=== PATIENT | female | born 1935 | race African-American/Black ===

== ENCOUNTER 2018-02-27 18:33 | Inpatient (IN) | payer MEDICARE, OTHER ==
[~2018-02-27] VITALS: Ht 162.6 cm; Wt 65.8 kg
[2018-02-27 20:58] LABS: BASOPHILS % 0.3 % (0.0-2.0); HEMATOCRIT. 30.6 % (36.0-48.0); HEMOGLOBIN. 9.4 g/dL (12.0-16.0); LYMPHOCYTES % 11.2 % (20.0-50.0); MEAN CORPUSCULAR HEMOGLOBIN 20.5 pg (28.0-32.0); MEAN CORPUSCULAR VOLUME 66.3 fL (81.0-99.0); MEAN PLATELET VOLUME 7.2 fl (7.4-10.4); MONOCYTES % 4.2 % (2.0-8.0); NEUTROPHILS % 84.3 % (40.0-76.0); PLATELET 365 x1000/uL (130-400); RED BLOOD CELL COUNT 4.61 mill/uL (4.2-5.4); RED CELL DISTRIBUTION WIDTH 19.2 % (11.6-14.6)
[2018-02-27 21:03] LABS: CHLORIDE 105 mEq/L (98-107)
[2018-02-27 21:05] LABS: INR 1.1; PARTIAL THROMBOPLASTIN TIME 26.7 sec (23.4-31.0); PROTHROMBIN TIME 11.4 sec (9.4-11.6)
[2018-02-27 21:07] LABS: ETHANOL BLOOD < 10 mg/dL
[2018-02-27 21:38] LABS: PLATELET ESTIMATE NORMAL
[2018-02-27] MEDS ORDERED: ASPIRIN 81MG TABLET PO ONE (23:15)
[2018-02-28] MEDS: KCL 20MEQ/100ML PREMIX 100 ML IV SCH ×2 (00:12→03:04)
[2018-02-28 02:57] VITALS: BP 119/74
[2018-02-28] MEDS ORDERED: MORPHINE SULFATE 4 MG/ML CPJ (NOT FOR IM USE) IV PRN (04:45)
[2018-02-28] MEDS: SODIUM CHLORIDE 0.9% 1,000 ML IV SCH ×2 (04:45→05:17)
[2018-02-28 08:00] VITALS: BP 140/79
[2018-02-28] MEDS ORDERED: ACETAMINOPHEN 325MG TABLET PO PRN (09:00)
[2018-02-28] MEDS ORDERED: DEXTROSE 50% WATER 50ML SYRINGE IV PRN (09:00)
[2018-02-28] MEDS ORDERED: ENOXAPARIN 40MG/0.4ML SYR SUBCUT SCH (09:00)
[2018-02-28] MEDS ORDERED: CEFTRIAXONE 1 G PREMIX 50 ML IV SCH (10:00)
[2018-02-28 10:31] LABS: HEMATOCRIT 27.6 % (36.0-48.0); HEMOGLOBIN 8.5 g/dL (12.0-16.0); MEAN CORPUSCULAR HEMOGLOBIN 20.3 pg (28.0-32.0); MEAN CORPUSCULAR VOLUME 65.9 fL (81.0-99.0); PLATELET 312 x1000/uL (130-400); RED BLOOD CELL COUNT 4.19 mill/uL (4.2-5.4); RED CELL DISTRIBUTION WIDTH 18.9 % (11.6-14.6)
[2018-02-28] MEDS ORDERED: CLONIDINE 0.1MG TABLET PO PRN (11:30)
[2018-02-28] MEDS: BLOOD SUGAR DIAGNOSTIC STRIP TEST SCH ×3 (12:37→21:48)
[2018-02-28 12:39] LABS: TOTAL IRON BINDING CAPACITY 320 ug/dL (250-450)
[2018-02-28 12:41] LABS: CHLORIDE 108 mEq/L (98-107)
[2018-02-28] MEDS: INSULIN LISPRO 100 UNITS/ML SUBCUT SCH ×3 (12:50→21:00)
[2018-02-28] MEDS: DILTIAZEM HCL 60MG TABLET PO SCH ×2 (14:34→21:48)
[2018-02-28] MEDS: POTASSIUM CHLORIDE 10MEQ TABLET SR PO SCH (14:34)
[2018-02-28 17:20] LABS: HEMATOCRIT 29.6 % (36.0-48.0); MEAN CORPUSCULAR HEMOGLOBIN 20.2 pg (28.0-32.0); MEAN CORPUSCULAR VOLUME 66.2 fL (81.0-99.0); PLATELET 318 x1000/uL (130-400); RED BLOOD CELL COUNT 4.47 mill/uL (4.2-5.4); RED CELL DISTRIBUTION WIDTH 19.1 % (11.6-14.6)
[2018-02-28] MEDS: CEFTRIAXONE 1 G PREMIX 50 ML IV SCH (17:53)
[2018-02-28] MEDS: FERROUS SULFATE 325MG TABLET PO SCH (17:56)
[2018-02-28 20:00] VITALS: BP 103/76
[2018-02-28 23:29] LABS: HEMATOCRIT 27.1 % (36.0-48.0); HEMOGLOBIN 8.5 g/dL (12.0-16.0); MEAN CORPUSCULAR HEMOGLOBIN 20.6 pg (28.0-32.0); MEAN CORPUSCULAR VOLUME 65.7 fL (81.0-99.0); PLATELET 303 x1000/uL (130-400); RED BLOOD CELL COUNT 4.12 mill/uL (4.2-5.4)
[2018-03-01] VITALS: BP 142/87
[2018-03-01] MEDS: HYDROCODONE/ACETAMINOPHEN 5/325MG TABLET PO PRN ×2 (01:28→05:55)
[2018-03-01 04:00] VITALS: BP 151/78
[2018-03-01] MEDS: DILTIAZEM HCL 60MG TABLET PO SCH (05:22)
[2018-03-01] MEDS: BLOOD SUGAR DIAGNOSTIC STRIP TEST SCH ×4 (06:39→21:17)
[2018-03-01] MEDS: INSULIN LISPRO 100 UNITS/ML SUBCUT SCH ×4 (06:39→21:29)
[2018-03-01 06:42] LABS: BASOPHILS % 0.8 % (0.0-2.0); MEAN CORPUSCULAR HEMOGLOBIN 20.5 pg (28.0-32.0); MEAN CORPUSCULAR VOLUME 66.2 fL (81.0-99.0); MEAN PLATELET VOLUME 7.9 fl (7.4-10.4); MONOCYTES % 6.1 % (2.0-8.0); NEUTROPHILS % 72.1 % (40.0-76.0); PLATELET 307 x1000/uL (130-400); RED BLOOD CELL COUNT 4.38 mill/uL (4.2-5.4); RED CELL DISTRIBUTION WIDTH 18.9 % (11.6-14.6)
[2018-03-01 07:09] LABS: CHLORIDE 107 mEq/L (98-107)
[2018-03-01 08:00] VITALS: BP 134/71
[2018-03-01] MEDS: POTASSIUM CHLORIDE 10MEQ TABLET SR PO SCH (08:55)
[2018-03-01] MEDS: FERROUS SULFATE 325MG TABLET PO SCH ×3 (08:55→17:05)
[2018-03-01 12:00] VITALS: BP 134/71
[2018-03-01] MEDS: DILTIAZEM HCL 90MG TABLET PO SCH ×2 (13:46→21:17)
[2018-03-01 16:00] VITALS: BP 159/79
[2018-03-01 16:20] LABS: AMMONIA 11 uMol/L (<32)
[2018-03-01 16:26] LABS: T4 FREE 1.39 ng/dL (0.76-1.46)
[2018-03-01] MEDS: CEFTRIAXONE 1 G PREMIX 50 ML IV SCH (16:33)
[2018-03-01 16:36] LABS: FOLIC ACID (FOLATE) SERUM 8.9 ng/mL (>5.38)
[2018-03-01 20:00] VITALS: BP 124/69
[2018-03-02] VITALS: BP 122/69
[2018-03-02 04:00] VITALS: BP 155/72
[2018-03-02 06:30] LABS: BASOPHILS % 0.5 % (0.0-2.0); EOSINOPHILS % 1.7 % (0.0-5.0); HEMATOCRIT. 28.4 % (36.0-48.0); HEMOGLOBIN. 8.7 g/dL (12.0-16.0); LYMPHOCYTES % 19.2 % (20.0-50.0); MEAN CORPUSCULAR HEMOGLOBIN 20.2 pg (28.0-32.0); MEAN CORPUSCULAR VOLUME 65.9 fL (81.0-99.0); MEAN PLATELET VOLUME 8.5 fl (7.4-10.4); MONOCYTES % 6.4 % (2.0-8.0); NEUTROPHILS % 72.2 % (40.0-76.0); PLATELET 313 x1000/uL (130-400); RED BLOOD CELL COUNT 4.31 mill/uL (4.2-5.4); RED CELL DISTRIBUTION WIDTH 18.6 % (11.6-14.6)
[2018-03-02] MEDS: BLOOD SUGAR DIAGNOSTIC STRIP TEST SCH ×4 (06:40→21:00)
[2018-03-02] MEDS: DILTIAZEM HCL 90MG TABLET PO SCH ×3 (06:41→22:10)
[2018-03-02 06:44] LABS: CHLORIDE 107 mEq/L (98-107)
[2018-03-02] MEDS: INSULIN LISPRO 100 UNITS/ML SUBCUT SCH ×4 (06:45→22:16)
[2018-03-02 08:00] VITALS: BP 133/76
[2018-03-02] MEDS: POTASSIUM CHLORIDE 10MEQ TABLET SR PO SCH (08:19)
[2018-03-02] MEDS: FERROUS SULFATE 325MG TABLET PO SCH ×3 (08:19→17:20)
[2018-03-02] MEDS ORDERED: HYDROCODONE/ACETAMINOPHEN 5/325MG TABLET PO NR (08:45)
[2018-03-02 12:00] VITALS: BP 138/84
[2018-03-02 16:00] VITALS: BP 129/72
[2018-03-02] MEDS: CEFTRIAXONE 1 G PREMIX 50 ML IV SCH (16:24)
[2018-03-02 20:00] VITALS: BP 139/73
[2018-03-03 04:00] VITALS: BP 151/82
[2018-03-03 06:19] LABS: BASOPHILS % 0.6 % (0.0-2.0); EOSINOPHILS % 2.6 % (0.0-5.0); HEMATOCRIT. 26.6 % (36.0-48.0); HEMOGLOBIN. 8.3 g/dL (12.0-16.0); LYMPHOCYTES % 19.7 % (20.0-50.0); MEAN CORPUSCULAR HEMOGLOBIN 20.8 pg (28.0-32.0); MEAN CORPUSCULAR VOLUME 66.7 fL (81.0-99.0); MEAN PLATELET VOLUME 8.6 fl (7.4-10.4); MONOCYTES % 7.2 % (2.0-8.0); NEUTROPHILS % 69.9 % (40.0-76.0); PLATELET 265 x1000/uL (130-400); RED BLOOD CELL COUNT 3.98 mill/uL (4.2-5.4); RED CELL DISTRIBUTION WIDTH 18.9 % (11.6-14.6)
[2018-03-03] MEDS: DILTIAZEM HCL 90MG TABLET PO SCH ×3 (06:32→21:32)
[2018-03-03] MEDS: INSULIN LISPRO 100 UNITS/ML SUBCUT SCH ×4 (06:32→21:40)
[2018-03-03] MEDS: BLOOD SUGAR DIAGNOSTIC STRIP TEST SCH ×4 (06:32→21:00)
[2018-03-03 07:09] LABS: CHLORIDE 107 mEq/L (98-107)
[2018-03-03 08:00] VITALS: BP 141/87
[2018-03-03] MEDS: POTASSIUM CHLORIDE 10MEQ TABLET SR PO SCH (08:53)
[2018-03-03] MEDS: FERROUS SULFATE 325MG TABLET PO SCH (08:53)
[2018-03-03] MEDS: IRON SUCROSE COMPLEX 100 MG/5 ML ML IV SCH (10:12)
[2018-03-03 12:00] VITALS: BP 178/82
[2018-03-03 16:30] VITALS: BP 150/65
[2018-03-03] MEDS: CEFTRIAXONE 1 G PREMIX 50 ML IV SCH (17:19)
[2018-03-03 20:00] VITALS: BP 137/86
[2018-03-04] VITALS: BP 133/66
[2018-03-04 04:00] VITALS: BP 128/62
[2018-03-04] MEDS: BLOOD SUGAR DIAGNOSTIC STRIP TEST SCH ×2 (05:01→12:10)
[2018-03-04] MEDS: DILTIAZEM HCL 90MG TABLET PO SCH ×2 (05:41→14:06)
[2018-03-04] MEDS: INSULIN LISPRO 100 UNITS/ML SUBCUT SCH ×2 (05:45→14:03)
[2018-03-04 07:03] LABS: EOSINOPHILS % 2.3 % (0.0-5.0); HEMATOCRIT. 27.1 % (36.0-48.0); HEMOGLOBIN. 8.5 g/dL (12.0-16.0); LYMPHOCYTES % 20.9 % (20.0-50.0); MEAN CORPUSCULAR HEMOGLOBIN 21.1 pg (28.0-32.0); MEAN CORPUSCULAR VOLUME 67.7 fL (81.0-99.0); MEAN PLATELET VOLUME 7.3 fl (7.4-10.4); NEUTROPHILS % 66.8 % (40.0-76.0); PLATELET 265 x1000/uL (130-400); RED CELL DISTRIBUTION WIDTH 19.1 % (11.6-14.6)
[2018-03-04] MEDS ORDERED: DONEPEZIL HCL 5MG TABLET PO SCH (09:00)
[2018-03-04] MEDS: IRON SUCROSE COMPLEX 100 MG/5 ML ML IV SCH (09:11)
[2018-03-04 09:53] LABS: CHLORIDE 108 mEq/L (98-107)
[2018-03-04 10:05] LABS: PHOSPHORUS 2.5 mg/dL (2.5-4.9)
[2018-03-04 11:55] VITALS: BP 142/79
[2018-03-04 13:40] VITALS: BP 153/70
== END 2018-03-04 16:00 | DRG 871 ==
LOC: ER 19:04 → 8WST 23:19 → EDBEDREQ 23:40 → ENRESERV 02-28 00:10
PROVIDERS: ADMIT Internal Medicine Nephrology; ATTEND Internal Medicine Nephrology
PROC: 4A10X4Z Monitoring of Central Nervous Electrical Activity, External Approach (ICD-10-PCS; principal; 2018-03-03)
DX: A41.9 Sepsis, unspecified organism (principal); G92 Toxic encephalopathy; N39.0 Urinary tract infection, site not specified; I47.1 Supraventricular tachycardia; I48.92 Unspecified atrial flutter; M84.361A Stress fracture, right tibia, initial encounter for fracture; E87.6 Hypokalemia; F03.90 Unspecified dementia, unspecified severity, without behavioral disturbance, psychotic disturbance, mood disturbance, and anxiety; D50.9 Iron deficiency anemia, unspecified; G31.9 Degenerative disease of nervous system, unspecified; E11.9 Type 2 diabetes mellitus without complications; I11.9 Hypertensive heart disease without heart failure; I48.91 Unspecified atrial fibrillation; M17.11 Unilateral primary osteoarthritis, right knee; R74.8 Abnormal levels of other serum enzymes; I49.9 Cardiac arrhythmia, unspecified; I49.3 Ventricular premature depolarization; R29.6 Repeated falls; M81.0 Age-related osteoporosis without current pathological fracture; W18.39XA Other fall on same level, initial encounter; Y93.89 Activity, other specified; Y92.091 Bathroom in other non-institutional residence as the place of occurrence of the external cause; Y99.8 Other external cause status; Z86.73 Personal history of transient ischemic attack (TIA), and cerebral infarction without residual deficits; Z91.81 History of falling; Z88.8 Allergy status to other drugs, medicaments and biological substances; Z82.49 Family history of ischemic heart disease and other diseases of the circulatory system
CPT/HCPCS: 36415; 70450; 70551; 71045; 73562; 73721; 80048; 80053; 80307; 80329; 82140; 82270; 82607; 82728; 82746; 82950; 82962; 83036; 83540; 83550; 83735; 83880; 84100; 84439; 84443; 84481; 84484; 84550; 85025; 85027; 85610; 85730; 86850; 86900; 87040; 92610; 93005; 93306; 93970; 97162; 97166; 97530; 99285; G0482; J0696; J1650; J1815; J3480; J7030

== ENCOUNTER 2018-03-04 16:08 | Inpatient (IN) | payer MEDICARE ==
[~2018-03-04] VITALS: Ht 162.6 cm; Wt 66.7 kg
[2018-03-04 16:40] VITALS: BP 135/60
[2018-03-04 17:12] VITALS: BP 135/60
[2018-03-04] MEDS ORDERED: ACETAMINOPHEN 325MG TABLET PO PRN (18:15)
[2018-03-04] MEDS ORDERED: CLONIDINE 0.1MG TABLET PO PRN (18:15)
[2018-03-04] MEDS ORDERED: DEXTROSE 50% WATER 50ML SYRINGE IV PRN (18:15)
[2018-03-04] MEDS ORDERED: MORPHINE SULFATE 4 MG/ML CPJ (NOT FOR IM USE) IV PRN (18:15)
[2018-03-04 20:00] VITALS: BP 137/69
[2018-03-04] MEDS: BLOOD SUGAR DIAGNOSTIC STRIP TEST SCH (21:00)
[2018-03-04] MEDS: DILTIAZEM HCL 90MG TABLET PO SCH (22:33)
[2018-03-04] MEDS: INSULIN LISPRO 100 UNITS/ML SUBCUT SCH (22:36)
[2018-03-05] MEDS: DILTIAZEM HCL 90MG TABLET PO SCH ×3 (06:00→21:53)
[2018-03-05] MEDS: BLOOD SUGAR DIAGNOSTIC STRIP TEST SCH ×4 (06:07→21:00)
[2018-03-05] MEDS: INSULIN LISPRO 100 UNITS/ML SUBCUT SCH ×4 (06:07→22:01)
[2018-03-05 07:43] LABS: BASOPHILS % 0.5 % (0.0-2.0); EOSINOPHILS % 2.2 % (0.0-5.0); HEMATOCRIT. 29.4 % (36.0-48.0); LYMPHOCYTES % 20.9 % (20.0-50.0); MEAN CORPUSCULAR HEMOGLOBIN 20.6 pg (28.0-32.0); MEAN CORPUSCULAR VOLUME 67.4 fL (81.0-99.0); NEUTROPHILS % 67.4 % (40.0-76.0); PLATELET 325 x1000/uL (130-400); RED BLOOD CELL COUNT 4.35 mill/uL (4.2-5.4); RED CELL DISTRIBUTION WIDTH 19.1 % (11.6-14.6)
[2018-03-05 08:00] VITALS: BP 154/94
[2018-03-05 08:00] LABS: CHLORIDE 106 mEq/L (98-107)
[2018-03-05] MEDS: DONEPEZIL HCL 5MG TABLET PO SCH (08:16)
[2018-03-05] MEDS: IRON SUCROSE COMPLEX 100 MG in SODIUM CHLORIDE 0.9% 100 ML IV SCH (08:16)
[2018-03-05 10:43] VITALS: BP 154/94
[2018-03-05 12:00] VITALS: BP 139/88
[2018-03-05 16:49] LABS: PLATELET ESTIMATE NORMAL
[2018-03-05 20:00] VITALS: BP 150/84
[2018-03-05] MEDS: CEFTRIAXONE 1 G PREMIX 50 ML IV SCH ×2 (21:53)
[2018-03-06] MEDS: DILTIAZEM HCL 90MG TABLET PO SCH ×3 (05:48→21:42)
[2018-03-06] MEDS: BLOOD SUGAR DIAGNOSTIC STRIP TEST SCH ×4 (05:50→21:40)
[2018-03-06 08:00] VITALS: BP 141/78
[2018-03-06 08:13] LABS: CHLORIDE 104 mEq/L (98-107)
[2018-03-06 08:17] LABS: BASOPHILS % 0.9 % (0.0-2.0); EOSINOPHILS % 1.8 % (0.0-5.0); HEMATOCRIT. 31.5 % (36.0-48.0); HEMOGLOBIN. 9.7 g/dL (12.0-16.0); LYMPHOCYTES % 21.2 % (20.0-50.0); MEAN CORPUSCULAR HEMOGLOBIN 20.9 pg (28.0-32.0); MEAN CORPUSCULAR VOLUME 67.8 fL (81.0-99.0); MEAN PLATELET VOLUME 7.5 fl (7.4-10.4); MONOCYTES % 6.4 % (2.0-8.0); NEUTROPHILS % 69.7 % (40.0-76.0); PLATELET 394 x1000/uL (130-400); RED BLOOD CELL COUNT 4.65 mill/uL (4.2-5.4)
[2018-03-06 08:23] LABS: LDL CHOLESTEROL 137 mg/dL (5-100)
[2018-03-06 08:24] LABS: HDL CHOLESTEROL 62 mg/dL (40-59)
[2018-03-06 08:25] LABS: PHOSPHORUS 2.4 mg/dL (2.5-4.9)
[2018-03-06 08:27] LABS: TOTAL IRON BINDING CAPACITY 294 ug/dL (250-450)
[2018-03-06 08:31] LABS: FOLIC ACID (FOLATE) SERUM 8.1 ng/mL (>5.38)
[2018-03-06] MEDS: INSULIN LISPRO 100 UNITS/ML SUBCUT SCH ×4 (09:00→21:39)
[2018-03-06 09:03] LABS: CLARITY URINE CLEAR (CLEAR); COLOR URINE YELLOW (YELLOW); KETONES URINE NEGATIVE (NEGATIVE); LEUKOCYTE ESTERASE URINE NEGATIVE (NEGATIVE); NITRITE URINE NEGATIVE (NEGATIVE); OCCULT BLOOD URINE NEGATIVE (NEGATIVE); PH URINE 8.5 (4.5-8.0); PROTEIN URINE NEGATIVE (NEGATIVE); SPECIFIC GRAVITY URINE 1.008 (1.005-1.030); UROBILINOGEN URINE 0.2 E.U./dL (0.2-1.0)
[2018-03-06] MEDS: DONEPEZIL HCL 5MG TABLET PO SCH (09:23)
[2018-03-06] MEDS: IRON SUCROSE COMPLEX 100 MG in SODIUM CHLORIDE 0.9% 100 ML IV SCH (09:25)
[2018-03-06] MEDS: HYDROCODONE/ACETAMINOPHEN 10/325MG TABLET PO PRN (13:52)
[2018-03-06] MEDS: CYANOCOBALAMIN 1000MCG/ML VIAL IM SCH (16:37)
[2018-03-06 20:00] VITALS: BP 159/80
[2018-03-06] MEDS ORDERED: ATORVASTATIN CALCIUM 40MG TABLET PO SCH (21:00)
[2018-03-06] MEDS: MUPIROCIN 2% OINT 22GM NS SCH (21:40)
[2018-03-06] MEDS: CEFTRIAXONE 1 G PREMIX 50 ML IV SCH (21:41)
[2018-03-07] MEDS: BLOOD SUGAR DIAGNOSTIC STRIP TEST SCH ×4 (06:55→21:04)
[2018-03-07] MEDS: DILTIAZEM HCL 90MG TABLET PO SCH ×3 (06:57→21:04)
[2018-03-07 07:50] VITALS: BP 142/65
[2018-03-07 08:00] VITALS: BP 142/65
[2018-03-07] MEDS: IRON SUCROSE COMPLEX 100 MG in SODIUM CHLORIDE 0.9% 100 ML IV SCH (08:33)
[2018-03-07] MEDS: DONEPEZIL HCL 5MG TABLET PO SCH (08:33)
[2018-03-07] MEDS: CYANOCOBALAMIN 1000MCG/ML VIAL IM SCH (08:33)
[2018-03-07] MEDS: MUPIROCIN 2% OINT 22GM NS SCH ×2 (08:33→20:52)
[2018-03-07] MEDS: INSULIN LISPRO 100 UNITS/ML SUBCUT SCH ×4 (08:57→20:51)
[2018-03-07] MEDS: HYDROCODONE/ACETAMINOPHEN 10/325MG TABLET PO PRN (11:20)
[2018-03-07] MEDS ORDERED: NA PHOS,M-B/NA PHOS,DI-BA ENEMA 118ML PR PRN (16:45)
[2018-03-07] MEDS: LACTULOSE 20G/30ML UDC PO PRN (17:22)
[2018-03-07] MEDS: DOCUSATE SODIUM 100MG CAPSULE PO SCH (17:23)
[2018-03-07 20:00] VITALS: BP 150/78
[2018-03-07] MEDS: CEFTRIAXONE 1 G PREMIX 50 ML IV SCH (20:50)
[2018-03-08] MEDS: BLOOD SUGAR DIAGNOSTIC STRIP TEST SCH ×4 (05:55→21:00)
[2018-03-08] MEDS: DILTIAZEM HCL 90MG TABLET PO SCH ×3 (05:55→22:35)
[2018-03-08 08:00] VITALS: BP 138/70
[2018-03-08] MEDS: INSULIN LISPRO 100 UNITS/ML SUBCUT SCH ×4 (09:00→21:00)
[2018-03-08] MEDS: CYANOCOBALAMIN 1000MCG/ML VIAL IM SCH (09:15)
[2018-03-08] MEDS: DONEPEZIL HCL 5MG TABLET PO SCH (09:15)
[2018-03-08] MEDS: IRON SUCROSE COMPLEX 100 MG in SODIUM CHLORIDE 0.9% 100 ML IV SCH (09:15)
[2018-03-08] MEDS: MUPIROCIN 2% OINT 22GM NS SCH ×2 (09:15→22:31)
[2018-03-08] MEDS: DOCUSATE SODIUM 100MG CAPSULE PO SCH ×2 (09:15→16:54)
[2018-03-08] MEDS: LACTULOSE 20G/30ML UDC PO PRN ×2 (10:01→16:54)
[2018-03-08 20:00] VITALS: BP 148/87
[2018-03-09] MEDS: INSULIN LISPRO 100 UNITS/ML SUBCUT SCH ×4 (06:01→21:00)
[2018-03-09] MEDS: BLOOD SUGAR DIAGNOSTIC STRIP TEST SCH ×4 (06:01→21:50)
[2018-03-09] MEDS: DILTIAZEM HCL 90MG TABLET PO SCH ×3 (06:02→22:16)
[2018-03-09 06:56] LABS: BASOPHILS % 0.8 % (0.0-2.0); EOSINOPHILS % 1.6 % (0.0-5.0); HEMATOCRIT. 30.7 % (36.0-48.0); HEMOGLOBIN. 9.5 g/dL (12.0-16.0); LYMPHOCYTES % 14.3 % (20.0-50.0); MEAN CORPUSCULAR HEMOGLOBIN 21.7 pg (28.0-32.0); MEAN CORPUSCULAR VOLUME 69.8 fL (81.0-99.0); MONOCYTES % 7.8 % (2.0-8.0); NEUTROPHILS % 75.5 % (40.0-76.0); PLATELET 390 x1000/uL (130-400); RED BLOOD CELL COUNT 4.39 mill/uL (4.2-5.4)
[2018-03-09 07:37] VITALS: BP 120/69
[2018-03-09] MEDS: IRON SUCROSE COMPLEX 100 MG in SODIUM CHLORIDE 0.9% 100 ML IV SCH (09:00)
[2018-03-09] MEDS: DONEPEZIL HCL 5MG TABLET PO SCH (09:48)
[2018-03-09] MEDS: DOCUSATE SODIUM 100MG CAPSULE PO SCH ×2 (09:48→17:47)
[2018-03-09] MEDS: MUPIROCIN 2% OINT 22GM NS SCH (09:52)
[2018-03-09 10:48] LABS: CHLORIDE 107 mEq/L (98-107)
[2018-03-09] MEDS ORDERED: HYDROCODONE/ACETAMINOPHEN 10/325MG TABLET PO PRN (16:30)
[2018-03-09] MEDS ORDERED: RISPERIDONE 0.5MG TABLET PO SCH (17:00)
[2018-03-09 20:00] VITALS: BP 119/70
[2018-03-09 21:09] LABS: CLARITY URINE CLEAR (CLEAR); COLOR URINE YELLOW (YELLOW); KETONES URINE TRACE (NEGATIVE); LEUKOCYTE ESTERASE URINE NEGATIVE (NEGATIVE); NITRITE URINE NEGATIVE (NEGATIVE); OCCULT BLOOD URINE NEGATIVE (NEGATIVE); PH URINE 5.5 (4.5-8.0); PROTEIN URINE NEGATIVE (NEGATIVE); SPECIFIC GRAVITY URINE 1.019 (1.005-1.030); UROBILINOGEN URINE 0.2 E.U./dL (0.2-1.0)
[2018-03-09] MEDS: RISPERIDONE 0.5MG TABLET PO SCH (22:16)
[2018-03-10] MEDS: MUPIROCIN 2% OINT 22GM NS SCH ×3 (00:20→21:10)
[2018-03-10] MEDS: DILTIAZEM HCL 90MG TABLET PO SCH ×3 (05:10→21:11)
[2018-03-10] MEDS: BLOOD SUGAR DIAGNOSTIC STRIP TEST SCH ×4 (05:37→21:11)
[2018-03-10] MEDS: INSULIN LISPRO 100 UNITS/ML SUBCUT SCH ×4 (06:15→21:00)
[2018-03-10 06:45] LABS: BASOPHILS % 0.8 % (0.0-2.0); EOSINOPHILS % 0.9 % (0.0-5.0); HEMATOCRIT. 30.1 % (36.0-48.0); HEMOGLOBIN. 9.2 g/dL (12.0-16.0); LYMPHOCYTES % 14.9 % (20.0-50.0); MEAN CORPUSCULAR HEMOGLOBIN 21.4 pg (28.0-32.0); MEAN CORPUSCULAR VOLUME 70.2 fL (81.0-99.0); MEAN PLATELET VOLUME 7.5 fl (7.4-10.4); MONOCYTES % 7.3 % (2.0-8.0); NEUTROPHILS % 76.1 % (40.0-76.0); PLATELET 341 x1000/uL (130-400); RED BLOOD CELL COUNT 4.28 mill/uL (4.2-5.4); RED CELL DISTRIBUTION WIDTH 20.3 % (11.6-14.6)
[2018-03-10 07:12] LABS: CHLORIDE 105 mEq/L (98-107)
[2018-03-10 07:50] VITALS: BP 118/62
[2018-03-10] MEDS: DOCUSATE SODIUM 100MG CAPSULE PO SCH ×2 (08:00→16:37)
[2018-03-10] MEDS: IRON SUCROSE COMPLEX 100 MG in SODIUM CHLORIDE 0.9% 100 ML IV SCH (08:00)
[2018-03-10] MEDS: DONEPEZIL HCL 5MG TABLET PO SCH (08:00)
[2018-03-10] MEDS: RISPERIDONE 0.5MG TABLET PO SCH ×2 (09:31→21:10)
[2018-03-10 20:00] VITALS: BP 132/72
[2018-03-10] MEDS ORDERED: ATORVASTATIN CALCIUM 10MG TABLET PO SCH (21:00)
[2018-03-10] MEDS: NIACIN 500MG TABLET CR PO SCH (21:21)
[2018-03-11] MEDS: DILTIAZEM HCL 90MG TABLET PO SCH ×3 (06:00→19:53)
[2018-03-11] MEDS: BLOOD SUGAR DIAGNOSTIC STRIP TEST SCH ×4 (06:14→19:54)
[2018-03-11] MEDS: INSULIN LISPRO 100 UNITS/ML SUBCUT SCH ×4 (06:23→19:59)
[2018-03-11 07:45] VITALS: BP 116/66
[2018-03-11] MEDS: IRON SUCROSE COMPLEX 100 MG in SODIUM CHLORIDE 0.9% 100 ML IV SCH (09:00)
[2018-03-11] MEDS: DOCUSATE SODIUM 100MG CAPSULE PO SCH ×2 (09:00→16:39)
[2018-03-11] MEDS: MUPIROCIN 2% OINT 22GM NS SCH (09:00)
[2018-03-11] MEDS: DONEPEZIL HCL 5MG TABLET PO SCH (09:00)
[2018-03-11] MEDS: RISPERIDONE 0.5MG TABLET PO SCH ×2 (10:00→19:54)
[2018-03-11] MEDS: ENOXAPARIN 40MG/0.4ML SYR SUBCUT SCH (18:00)
[2018-03-11] MEDS: NIACIN 500MG TABLET CR PO SCH (19:56)
[2018-03-11 20:00] VITALS: BP 152/94
[2018-03-12] MEDS: DILTIAZEM HCL 90MG TABLET PO SCH (05:50)
[2018-03-12] MEDS: BLOOD SUGAR DIAGNOSTIC STRIP TEST SCH ×4 (05:50→21:23)
[2018-03-12] MEDS: INSULIN LISPRO 100 UNITS/ML SUBCUT SCH ×4 (06:34→21:00)
[2018-03-12 07:40] VITALS: BP 129/66
[2018-03-12] MEDS: RISPERIDONE 0.5MG TABLET PO SCH ×2 (08:55→21:23)
[2018-03-12] MEDS: DOCUSATE SODIUM 100MG CAPSULE PO SCH ×2 (08:55→17:31)
[2018-03-12] MEDS: DONEPEZIL HCL 5MG TABLET PO SCH (08:55)
[2018-03-12] MEDS: IRON SUCROSE COMPLEX 100 MG in SODIUM CHLORIDE 0.9% 100 ML IV SCH (09:00)
[2018-03-12] MEDS: FERROUS SULFATE 325MG TABLET PO SCH ×2 (12:30→17:31)
[2018-03-12] MEDS: ENOXAPARIN 40MG/0.4ML SYR SUBCUT SCH (17:31)
[2018-03-12 20:00] VITALS: BP 145/76
[2018-03-12] MEDS: NIACIN 500MG TABLET CR PO SCH (21:24)
[2018-03-13] MEDS: BLOOD SUGAR DIAGNOSTIC STRIP TEST SCH ×4 (05:54→21:28)
[2018-03-13] MEDS: INSULIN LISPRO 100 UNITS/ML SUBCUT SCH ×4 (05:54→21:30)
[2018-03-13 07:26] LABS: BASOPHILS % 0.8 % (0.0-2.0); EOSINOPHILS % 1.6 % (0.0-5.0); HEMATOCRIT. 29.2 % (36.0-48.0); HEMOGLOBIN. 9.2 g/dL (12.0-16.0); LYMPHOCYTES % 15.4 % (20.0-50.0); MEAN CORPUSCULAR HEMOGLOBIN 22.2 pg (28.0-32.0); MEAN CORPUSCULAR VOLUME 70.8 fL (81.0-99.0); MEAN PLATELET VOLUME 7.6 fl (7.4-10.4); MONOCYTES % 6.8 % (2.0-8.0); NEUTROPHILS % 75.4 % (40.0-76.0); PLATELET 353 x1000/uL (130-400); RED BLOOD CELL COUNT 4.13 mill/uL (4.2-5.4); RED CELL DISTRIBUTION WIDTH 24.7 % (11.6-14.6)
[2018-03-13 07:30] VITALS: BP 143/88
[2018-03-13 07:58] LABS: CHLORIDE 107 mEq/L (98-107)
[2018-03-13] MEDS ORDERED: ERGOCALCIFEROL 50000UNITS CAPSULE PO SCH (09:00)
[2018-03-13] MEDS: DONEPEZIL HCL 5MG TABLET PO SCH (09:05)
[2018-03-13] MEDS: DOCUSATE SODIUM 100MG CAPSULE PO SCH ×2 (09:05→17:00)
[2018-03-13] MEDS: FERROUS SULFATE 325MG TABLET PO SCH ×3 (09:05→17:00)
[2018-03-13] MEDS: RISPERIDONE 0.5MG TABLET PO SCH ×2 (11:38→21:28)
[2018-03-13] MEDS: ENOXAPARIN 40MG/0.4ML SYR SUBCUT SCH (18:00)
[2018-03-13 20:00] VITALS: BP 133/61
[2018-03-13] MEDS: NIACIN 500MG TABLET CR PO SCH (21:28)
[2018-03-14] MEDS: BLOOD SUGAR DIAGNOSTIC STRIP TEST SCH ×4 (05:57→21:25)
[2018-03-14] MEDS: INSULIN LISPRO 100 UNITS/ML SUBCUT SCH ×4 (05:58→21:00)
[2018-03-14 08:00] VITALS: BP 153/76
[2018-03-14] MEDS: DOCUSATE SODIUM 100MG CAPSULE PO SCH ×2 (08:19→16:09)
[2018-03-14] MEDS: DONEPEZIL HCL 5MG TABLET PO SCH (08:19)
[2018-03-14] MEDS: FERROUS SULFATE 325MG TABLET PO SCH ×3 (08:19→16:09)
[2018-03-14] MEDS: RISPERIDONE 0.5MG TABLET PO SCH ×2 (10:31→22:03)
[2018-03-14] MEDS: ENOXAPARIN 40MG/0.4ML SYR SUBCUT SCH (17:34)
[2018-03-14 20:00] VITALS: BP 115/71
[2018-03-14] MEDS: NIACIN 500MG TABLET CR PO SCH (22:03)
[2018-03-15 06:20] LABS: BASOPHILS % 0.8 % (0.0-2.0); EOSINOPHILS % 1.2 % (0.0-5.0); HEMOGLOBIN. 9.1 g/dL (12.0-16.0); LYMPHOCYTES % 16.3 % (20.0-50.0); MEAN CORPUSCULAR HEMOGLOBIN 22.2 pg (28.0-32.0); MEAN CORPUSCULAR VOLUME 70.8 fL (81.0-99.0); MEAN PLATELET VOLUME 7.4 fl (7.4-10.4); MONOCYTES % 8.1 % (2.0-8.0); NEUTROPHILS % 73.6 % (40.0-76.0); PLATELET 381 x1000/uL (130-400); RED CELL DISTRIBUTION WIDTH 23.9 % (11.6-14.6)
[2018-03-15] MEDS: INSULIN LISPRO 100 UNITS/ML SUBCUT SCH ×3 (06:34→17:00)
[2018-03-15] MEDS: BLOOD SUGAR DIAGNOSTIC STRIP TEST SCH ×3 (06:34→16:51)
[2018-03-15 06:36] LABS: CHLORIDE 107 mEq/L (98-107)
[2018-03-15 06:41] LABS: PHOSPHORUS 2.4 mg/dL (2.5-4.9)
[2018-03-15 08:00] VITALS: BP 155/65
[2018-03-15] MEDS: DOCUSATE SODIUM 100MG CAPSULE PO SCH ×2 (08:56→16:55)
[2018-03-15] MEDS: DONEPEZIL HCL 5MG TABLET PO SCH (08:56)
[2018-03-15] MEDS: FERROUS SULFATE 325MG TABLET PO SCH ×3 (08:56→16:55)
[2018-03-15] MEDS: RISPERIDONE 0.5MG TABLET PO SCH (08:56)
[2018-03-15 10:21] VITALS: BP 135/62
[2018-03-15] MEDS: ENOXAPARIN 40MG/0.4ML SYR SUBCUT SCH (16:55)
== END 2018-03-15 18:05 | disposition home health service (06) | DRG 92 ==
PROVIDERS: ADMIT Physical Medicine & Rehabilitation Spinal Cord Injury Medicine; ATTEND Internal Medicine Nephrology
DX: G92 Toxic encephalopathy (principal); S82.144A Nondisplaced bicondylar fracture of right tibia, initial encounter for closed fracture; N39.0 Urinary tract infection, site not specified; I47.1 Supraventricular tachycardia; I10 Essential (primary) hypertension; E11.9 Type 2 diabetes mellitus without complications; F03.90 Unspecified dementia, unspecified severity, without behavioral disturbance, psychotic disturbance, mood disturbance, and anxiety; R29.6 Repeated falls; D50.9 Iron deficiency anemia, unspecified; W18.39XA Other fall on same level, initial encounter; R53.81 Other malaise; R26.9 Unspecified abnormalities of gait and mobility; R74.8 Abnormal levels of other serum enzymes; F39 Unspecified mood [affective] disorder; D72.829 Elevated white blood cell count, unspecified; E78.5 Hyperlipidemia, unspecified; I48.91 Unspecified atrial fibrillation; E87.6 Hypokalemia; E78.00 Pure hypercholesterolemia, unspecified; E55.9 Vitamin D deficiency, unspecified; I49.3 Ventricular premature depolarization; Z86.73 Personal history of transient ischemic attack (TIA), and cerebral infarction without residual deficits; Y93.89 Activity, other specified; Y92.091 Bathroom in other non-institutional residence as the place of occurrence of the external cause; Y99.8 Other external cause status; Z88.8 Allergy status to other drugs, medicaments and biological substances; Z79.899 Other long term (current) drug therapy; Z79.4 Long term (current) use of insulin; Z82.49 Family history of ischemic heart disease and other diseases of the circulatory system; Z83.3 Family history of diabetes mellitus; Z91.81 History of falling
CPT/HCPCS: 36415; 73560; 80048; 80053; 80061; 81003; 82270; 82306; 82607; 82728; 82746; 82962; 83036; 83540; 83550; 83735; 84100; 84134; 84443; 84630; 85025; 87086; 92523; 93970; 97110; 97116; 97163; 97167; 97530; 97535; A6261; G0515; J0696; J1650; J1815; J3420; J7040; J7050